=== PATIENT | female | born 1935 | race Hispanic/Latino ===

== ENCOUNTER 2018-04-10 00:09 | Observation (INO) | payer MEDICARE, BC ==
[2018-04-10 00:16] VITALS: BMI 24.1
[2018-04-10] MEDS ORDERED: TDAP Vaccine 0.5 mL Syr IM ONE (00:29)
[2018-04-10] MEDS ORDERED: Lidocaine 1% Inj (20ml) IJ STA (00:29)
--- NOTE | 2018-04-10 01:44 | ED PDOC ---
Arrival/HPI - General Historian: Patient - History of Present Illness Narrative History of Present Illness (Text): Nicole Min is an 82 year old female who presents to the Emergency department status post fall. Patient states she was sitting in her rocking chair, could not find her TV remote, and attempted to turn off her TV when she fell forward. Patient states she hit her face on the floor and sustained laceration to her right 2nd and 4th fingers. Patient denies any loss of consciousness, headache, or any other pain. Patient states she just fell, states she did not trip or slip and fall. Patient states she felt fine prior to the fall, states she was watching TV without any issues. Patient denies any dizziness, chest pain, shortness of breath, nausea, vomiting, palpitations, or any other complaints. Symptom Onset: Gradual Symptom Course: Unchanged Activities at Onset: Light Context: Home <Kathleen Michael PA-C - Last Filed: 04/10/18 02:29> <Tay Freeman - Last Filed: 04/10/18 05:23> - General Chief Complaint: Trauma Time Seen by Provider: 04/10/18 00:17 Past Medical History - Provider Review Nursing Documentation Reviewed: Yes - Infectious Disease Hx of Infectious Diseases: None - Tetanus Immunization Tetanus Immunization: Unknown - Cardiac Hx Hypertension: Yes - Musculoskeletal/Rheumatological Hx Falls: No - Gastrointestinal Hx Gastrointestinal Disorders: Yes (bilateral inguinal hernia sx,reflux,polyps) - Psychiatric Hx Depression: No Hx Emotional Abuse: No Hx Physical Abuse: No Hx Substance Use: No - Surgical History Hx Cholecystectomy: Yes - Suicidal Assessment Feels Threatened In Home Enviroment: No <Kathleen Michael PA-C - Last Filed: 04/10/18 02:29> Family/Social History - Physician Review Nursing Documentation Reviewed: Yes Family/Social History: Unknown Family HX Smoking Status: Never Smoked Hx Alcohol Use: No Hx Substance Use: No Hx Substance Use Treatment: No <Kathleen Michael PA-C - Last Filed: 04/10/18 02:29> Allergies/Home Meds <Kathleen Michael PA-C - Last Filed: 04/10/18 02:29> <Tay Freeman - Last Filed: 04/10/18 05:23> Allergies/Adverse Reactions: Allergies No Known Allergies Allergy (Verified 08/16/11 17:27) Home Medications: Home Meds Medication Instructions Recorded Confirmed Lansoprazole [Prevacid Solutab] 30 mg PO DAILY 08/16/11 02/19/13 Lisinopril 20 mg PO DAILY 08/16/11 02/19/13 Warfarin [Coumadin] 3 mg PO HS 08/20/11 02/19/13 Review of Systems - Physician Review All systems were reviewed & negative as marked: Yes - Review of Systems Constitutional: Normal. absent: Fevers Eyes: Normal ENT: Normal Respiratory: Normal. absent: SOB, Cough Cardiovascular: Normal. absent: Chest Pain Gastrointestinal: Normal. absent: Abdominal Pain, Diarrhea, Nausea, Vomiting Genitourinary Female: Normal. absent: Dysuria, Frequency, Hematuria, Urine Output Changes Musculoskeletal: Normal. absent: Back Pain, Neck Pain Skin: Laceration Neurological: Normal. absent: Headache, Dizziness Endocrine: Normal Hemo/Lymphatic: Normal Psychiatric: Normal <Kathleen Michael PA-C - Last Filed: 04/10/18 02:29> Physical Exam Vital Signs Reviewed: Yes Vital Signs Temp Pulse Resp BP Pulse Ox 04/10/18 01:04 63 18 152/87 H 100 04/10/18 00:17 98.8 F 79 18 157/107 H 99 Temperature: Afebrile Blood Pressure: Normal Pulse: Regular Respiratory Rate: Normal Appearance: Positive for: Well-Appearing, Non-Toxic, Comfortable Pain Distress: None Mental Status: Positive for: Alert and Oriented X 3 - Systems Exam Head: Present: Atraumatic, Normocephalic Pupils: Present: PERRL Extroacular Muscles: Present: EOMI Conjunctiva: Present: Normal Ears: Present: Normal, NORMAL TM, Normal Canal. No: Erythema, TM Bulging, Fluid, TM Perf Mouth: Present: Moist Mucous Membranes Neck: Present: Normal Range of Motion Respiratory/Chest: Present: Clear to Auscultation, Good Air Exchange. No: Respiratory Distress, Accessory Muscle Use Cardiovascular: Present: Regular Rate and Rhythm, Normal S1, S2. No: Murmurs Abdomen: No: Tenderness, Distention, Peritoneal Signs Back: Present: Normal Inspection Upper Extremity: Present: Normal ROM, NORMAL PULSES, Neurovascularly Intact, Capillary Refill < 2s, Other (U-shaped laceration, approximately 3cm, to volar aspects of the right 2nd and 4th digit). No: Cyanosis, Edema, Tenderness, Swelling, Erythema, Temperature Abnormalties, Deformity Lower Extremity: Present: Normal Inspection. No: Edema Neurological: Present: GCS=15, CN II-XII Intact, Speech Normal Skin: Present: Warm, Dry, Normal Color. No: Rashes Psychiatric: Present: Alert, Oriented x 3, Normal Insight, Normal Concentration <Kathleen Michael PA-C - Last Filed: 04/10/18 02:29> Vital Signs Temp Pulse Resp BP Pulse Ox 04/10/18 01:04 63 18 152/87 H 100 04/10/18 00:17 98.8 F 79 18 157/107 H 99 <Tay Freeman - Last Filed: 04/10/18 05:23> Medical Decision Making ED Course and Treatment: Impression: 82 year old female presents s/p fall at home. Plan: -- CT Head w/o contrast -- EKG -- Chest X-Ray -- XR Right Shoulder -- Labs, cardiac enzymes, BNP -- Urinalysis, urine cultures -- TDAP -- Lidocaine -- Reassess and disposition Progress Notes: 04/10/18 01:15 Spoke with patient's daughter via phone, states patient has developed some dementia. States she did not witness the fall, as she lives upstairs, however notes patient called her right away after the fall. 04/10/18 02:15 XR Right Shoulder reviewed, negative for fractures. CXR shows no acute processes. 04/10/18 02:30 PROCEDURE: LACERATION REPAIR Performed by the emergency provider Location: Right 2nd finger Length: 3 cm Description: clean wound edges, no foreign bodies Distal CMS: Normal. No deficits. Neurovascularly intact. Preparation: The wound was cleaned with NS and Betadyne. The area was prepped and draped in the usual sterile fashion. Exploration: The wound was explored and no foreign bodies were found. Procedure: The wound was closed with dermabond. There was good approximation. Post-Procedure: Good closure and hemostasis. The patient tolerated the procedure well and there were no complications. CSM remains intact. Post procedure dressing applied. PROCEDURE: DIGITAL BLOCK Performed by the emergency provider Indication : Pain control Location: Right 4th digit Preparation: The area was prepped and cleansed with NS and Betadyne. Procedure: The appropriate site for a digital nerve block was identified. Nerve block was obtained with local infiltration of 5 mL of Lidocaine 1%. Post-Procedure: The patient tolerated the procedure well, and there were no complications. Performed by the emergency provider Location: Right 4th finger Length: 3 cm Description: clean wound edges,no foreign bodies Distal CMS: Normal. No deficits. Neurovascularly intact. Anesthesia: Lidocaine 1% Preparation: The wound was cleaned with NS and Betadyne. The area was prepped and draped in the usual sterile fashion. Exploration: The wound was explored and no foreign bodies were found. Procedure: The wound was closed with 4-0 proline. There was good approximation. In total, 4 stitches were used. Post-Procedure: Good closure and hemostasis. The patient tolerated the procedure well and there were no complications. CSM remains intact. Post procedure dressing applied. - RAD Interpretation Radiology Orders: 04/10/18 00:29 HEAD W/O CONTRAST [CT] Stat 04/10/18 01:24 CHEST TWO VIEWS (PA/LAT) [RAD] Stat SHOULDER RIGHT [RAD] Stat - Medication Orders Current Medication Orders: Discontinued Medications Lidocaine HCl (Lidocaine 1% (20ml)) 10 ml IJ STAT STA Stop: 04/10/18 00:30 Tetanus/Reduced Diphtheria/Acell Pertussis (Boostrix Vaccine Inj) 0.5 ml IM .ONCE ONE Stop: 04/10/18 00:30 <Kathleen Michael PA-C - Last Filed: 04/10/18 02:29> ED Course and Treatment: 04/10/18 04:48 CT Head: There is normal configuration of sella turcica. There are no intra or extra- axial collections. There is no mass effect or midline shift. There is no evidence of hematoma formation. No hydrocephalus is present. The ventricles are symmetrical. No abnormal calcifications are present. There is diffuse age-appropriate cerebellar and cerebral atrophy with proportionally dilated ventricles and cortical sulci. There are bilateral periventricular and subcortical white matter hypolucencies compatible with mild chronic microvascular disease. Otherwise, no significant focal abnormalities are seen either in the posterior fossa or supratentorial compartment. IMPRESSION: 1. Age-appropriate cerebellar and cerebral atrophy. 2. Mild chronic microvascular disease. 3. No evidence of acute intracranial pathology. Thank you for your kind referral of this patient. Electronically signed on Apr 10, 2018 2:48:16 AM EST by: Hanny Tenorio M.D., Certified by ABR, MSK, Neuroradiology 04/10/18 05:04 Case was discussed with , accepts to his service. - RAD Interpretation Radiology Orders: 04/10/18 00:29 HEAD W/O CONTRAST [CT] Stat 04/10/18 01:24 CHEST TWO VIEWS (PA/LAT) [RAD] Stat SHOULDER RIGHT [RAD] Stat - Medication Orders Current Medication Orders: Discontinued Medications Lidocaine HCl (Lidocaine 1% (20ml)) 10 ml IJ STAT STA Stop: 04/10/18 00:30 Tetanus/Reduced Diphtheria/Acell Pertussis (Boostrix Vaccine Inj) 0.5 ml IM .ONCE ONE Stop: 04/10/18 00:30 <Tay Freeman - Last Filed: 04/10/18 05:23> - PA / BRAIN PICKER / Resident Statement KHOI has reviewed & agrees with the documentation as recorded. - Scribe Statement The provider has reviewed the documentation as recorded by the Scribe Hetal Danielle Provider Scribe Attestation: All medical record entries made by the Scribe were at my direction and personally dictated by me. I have reviewed the chart and agree that the record accurately reflects my personal performance of the history, physical exam, medical decision making, and the department course for this patient. I have also personally directed, reviewed, and agree with the discharge instructions and disposition. <Kathleen Michael PA-C - Last Filed: 04/10/18 02:29> - PA / BRAIN PICKER / Resident Statement KHOI has reviewed & agrees with the documentation as recorded. KHOI has examined the patient and agrees with the treatment plan. <Tay Freeman - Last Filed: 04/10/18 05:23> Disposition/Present on Arrival - Present on Arrival Any Indicators Present on Arrival: Yes History of DVT/PE: Yes History of Uncontrolled Diabetes: No Urinary Catheter: No History of Decub. Ulcer: No History Surgical Site Infection Following: None - Disposition Have Diagnosis and Disposition been Completed?: Yes <Kathleen Michael PA-C - Last Filed: 03/06/19 02:29> - Present on Arrival Any Indicators Present on Arrival: Yes History of DVT/PE: Yes History of Uncontrolled Diabetes: No Urinary Catheter: No History of Decub. Ulcer: No History Surgical Site Infection Following: None - Disposition Have Diagnosis and Disposition been Completed?: Yes Disposition Time: 04:59 Patient Plan: Observation <Tay Freeman - Last Filed: 04/10/18 05:23> - Disposition Diagnosis: Fall, Near syncope, Finger laceration Disposition: HOSPITALIZED Patient Problems: Current Active Problems Problem Status Onset Fall Acute Finger laceration Acute Near syncope Acute Condition: STABLE
[2018-04-10 03:04] LABS: BASO # 0.02 K/mm3 (0.0-2.0); BASO % 0.2 % (0.0-3.0); EOS # 0.1 (0.0-0.7); EOS % 0.6 % (1.5-5.0); HEMOGLOBIN 14.8 g/dL (12.0-16.0); LYMPH # 1.3 (1.2-3.4); LYMPH % 15.7 % (22.0-35.0); MEAN CELL VOLUME 89.2 fl (80.0-105.0); MEAN CORPUSCULAR HGB CONC 32.5 g/dl (31.0-37.0); MEAN PLATELET VOLUME 10.2 fl (7.0-11.0); MONO # 0.6 (0.1-0.6); MONO % 7.6 % (1.0-6.0); RBC 5.11 10^6/uL (3.5-6.1); RED CELL DISTRIBUTION WIDTH 13.3 % (11.5-14.5); WHITE BLOOD COUNT 8.1 10^3/uL (4.5-11.0)
[2018-04-10 03:16] LABS: ALB/GLOB RATIO 1.2 (1.1-1.8); ALBUMIN 3.7 g/dL (3.0-4.8); BLOOD UREA NITROGEN 17 mg/dL (7-21); CALCIUM 9.3 mg/dL (8.4-10.5); GFR NON-AFRICAN AMERICAN > 60
[2018-04-10 03:27] LABS: B-TYPE NATRIURETIC PEPTIDE 367 pg/mL (0-450); TROPONIN I 0.01 ng/mL
[2018-04-10 04:13] LABS: ALT/SGPT 18 U/L (7-56); AST/SGOT 32 U/L (14-36)
[2018-04-10 05:51] LABS: INR 1.02; PARTIAL THROMBOPLASTIN TIME 26.8 Seconds (26.9-38.3); PROTHROMBIN TIME 11.5 SECONDS (9.4-12.5)
[2018-04-10] MEDS ORDERED: Bacitracin 500 Units/gm Oint Foilpak UD ONE (06:10)
--- NOTE | 2018-04-10 08:19 | CT ---
Date of service: 04/10/2018 PROCEDURE: CT HEAD WITHOUT CONTRAST. HISTORY: fall COMPARISON: 02/19/2013 TECHNIQUE: Axial computed tomography images were obtained through the head/brain without intravenous contrast. Radiation dose: Total exam DLP = 802.65 mGy-cm. This CT exam was performed using one or more of the following dose reduction techniques: Automated exposure control, adjustment of the mA and/or kV according to patient size, and/or use of iterative reconstruction technique. FINDINGS: HEMORRHAGE: No intracranial hemorrhage. BRAIN: No mass effect or edema. Chronic microvascular changes are seen in the periventricular white matter. Moderate atrophy VENTRICLES: Unremarkable. No hydrocephalus. CALVARIUM: Unremarkable. PARANASAL SINUSES: Unremarkable as visualized. No significant inflammatory changes. MASTOID AIR CELLS: Unremarkable as visualized. No inflammatory changes. OTHER FINDINGS: The report concurs with the preliminary [facility] report IMPRESSION: No acute intracranial findings
--- NOTE | 2018-04-10 09:01 | RAD ---
Date of service: 04/10/2018 HISTORY: fall COMPARISON: No prior. TECHNIQUE: Chest PA and lateral FINDINGS: LUNGS: No active pulmonary disease. PLEURA: No significant pleural effusion identified. No pneumothorax apparent. CARDIOVASCULAR: Aortic calcification Normal cardiac size. No pulmonary vascular congestion. OSSEOUS STRUCTURES: No significant abnormalities. VISUALIZED UPPER ABDOMEN: Normal. OTHER FINDINGS: None. IMPRESSION: No active disease.
[2018-04-10 09:20] VITALS: O2SAT 98
[2018-04-10] MEDS: Enoxaparin 60 mg Syringe SC SCH ×2 (09:31→22:44)
--- NOTE | 2018-04-10 11:19 | RAD ---
Date of service: 04/10/2018 PROCEDURE: Radiographs of the Right Shoulder HISTORY: pain COMPARISON: No prior. FINDINGS: BONES: Normal. No fracture. JOINTS: Normal. Glenohumeral and acromioclavicular joints preserved. No osteoarthritis. SOFT TISSUES: Normal. OTHER FINDINGS: None. IMPRESSION: Normal radiographs of the right shoulder.
--- NOTE | 2018-04-10 11:58 | CP.PCM.APN ---
Subjective - Date & Time of Evaluation Date of Evaluation: 04/10/18 Time of Evaluation: 10:00 - Subjective Subjective: pt seenna dexamined at bedside, pt in NAd , denies cp or sob Review of Systems - Review of Systems All systems: reviewed and no additional remarkable complaints except Objective - Vital Signs/Intake and Output Vital Signs (last 24 hours): Temp Pulse Resp BP Pulse Ox 98.8 F 75 20 128/82 98 04/10/18 06:10 04/10/18 06:10 04/10/18 07:46 04/10/18 06:10 04/10/18 06:10 - Medications Medications: Current Medications Enoxaparin Sodium (Lovenox) 60 mg SC Q12 CORETTA; Protocol Last Admin: 04/10/18 09:31 Dose: 60 mg - Labs Labs: 04/10/18 02:49 04/10/18 02:49 PT 11.5 SECONDS (9.4-12.5) 04/10/18 05:20 INR 1.02 04/10/18 05:20 APTT 26.8 Seconds (26.9-38.3) L 04/10/18 05:20 - Constitutional Appears: No Acute Distress - Eye Exam Eye Exam: Normal appearance Pupil Exam: NORMAL ACCOMODATION - ENT Exam ENT Exam: Normal Exam - Neck Exam Neck Exam: Normal Inspection - Respiratory Exam Respiratory Exam: Clear to Ausculation Bilateral, NORMAL BREATHING PATTERN - Cardiovascular Exam Cardiovascular Exam: +S1, +S2 - GI/Abdominal Exam GI & Abdominal Exam: Soft - Extremities Exam Extremities Exam: Normal Inspection (4th finger with dsg ) - Neurological Exam Neurological Exam: Alert - Skin Skin Exam: Dry, Intact Assessment and Plan - Assessment and Plan (Free Text) Plan: ITS Impressions Head CT 04/10/18 00:29 IMPRESSION: No acute intracranial findings Chest X-Ray 04/10/18 01:24 IMPRESSION: No active disease. Shoulder X-Ray 04/10/18 01:24 IMPRESSION: Normal radiographs of the right shoulder. 82 yr old female with pmh sig for ? 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 will continue to monitor clinical status. BPCI/TIC - BPCIA/TIC Educated pt/family on BPCIA/CIR/Med to Bed Programs: N/A Flyers given, including CMS Beneficiary letter: N/A Pt/family verbalized understanding & agreed to program: N/A
--- NOTE | 2018-04-10 13:58 | CARD ---
APPROVED REPORT Date of service: 04/10/2018 EKG Measurement Heart [id number] CT [id number] <Conclusion> Sinus rhythm with 1st degree AV block with premature atrial complexes Inferior infarct, age undetermined Abnormal ECG
--- NOTE | 2018-04-10 15:18 | CP.PCM.HP ---
<KamillaRaudel - Last Filed: 04/10/18 15:13> History of Present Illness - History of Present Illness History of Present Illness: H&P for Dr Sanchez: 79-year-old female with past medical history of DVT with IVC filter was on Coumadin however noncompliant in the last month, duodenal carcinoma, diverticulosis, obesity, hypertension, GERD, esophagitis presents to the emergency room following a fall. Patient states that she went to turn off her television in the house when she fell. Patient denies losing consciousness or blackening out. Patient denies any urinary or fecal incontinence. No tongue biting. She denies tripping over anything. She does state that her legs were weak and that could be the cause of her falling. Patient did hit the right side of her face near her cheek and jaws. She also developed a laceration during the fall to her right ring finger. Patient denies any other complaints at this time 12 point ROS performed and negative other than stated above PMH: As above PSH: IVC filter, hematoma by the abdomen? Medications: Noncompliant, was on Coumadin Allergies: No known allergies SH: Denies any smoking, drinking, or drug use FH: Denies Present on Admission - Present on Admission Any Indicators Present on Admission: No Review of Systems - Review of Systems All systems: reviewed and no additional remarkable complaints except Past Patient History - Infectious Disease Hx of Infectious Diseases: None - Tetanus Immunizations Tetanus Immunization: Unknown - Past Social History Smoking Status: Former Smoker - CARDIAC Hx Hypertension: Yes - MUSCULOSKELETAL/RHEUMATOLOGICAL Hx Falls: Yes - GASTROINTESTINAL Hx Gastrointestinal Disorders: Yes (bilateral inguinal hernia sx,reflux,polyps) - PSYCHIATRIC Hx Depression: No Hx Emotional Abuse: No Hx Physical Abuse: No Hx Substance Use: No - SURGICAL HISTORY Hx Cholecystectomy: Yes Meds Allergies/Adverse Reactions: Allergies Allergy/AdvReac Type Severity Reaction Status Date / Time No Known Allergies Allergy Verified 08/16/11 17:27 Physical Exam - Constitutional Appears: No Acute Distress - Head Exam Head Exam: NORMOCEPHALIC Additional comments: Erythema and mild swelling to the right lower face near her cheek and her jaws - Eye Exam Eye Exam: EOMI - ENT Exam ENT Exam: Mucous Membranes Moist - Respiratory Exam Respiratory Exam: Clear to Auscultation Bilateral. absent: Rales, Wheezes - Cardiovascular Exam Cardiovascular Exam: REGULAR RHYTHM, +S1, +S2 - Extremities Exam Additional comments: Laceration that was repaired in the ED to her right middle finger. The area is CDI. Results - Vital Signs Recent Vital Signs: Last Vital Signs Temp 98.9 F 04/10/18 12:00 Pulse 69 04/10/18 12:00 Resp 18 04/10/18 12:00 BP 155/79 H 04/10/18 12:00 Pulse Ox 98 04/10/18 06:10 - Labs Result Diagrams: 04/10/18 02:49 04/10/18 02:49 Labs: Laboratory Results - last 24 hr 04/10/18 04/10/18 04/10/18 02:49 02:49 05:20 WBC 8.1 RBC 5.11 Hgb 14.8 Hct 45.6 MCV 89.2 MCH 29.0 MCHC 32.5 RDW 13.3 Plt Count 199 MPV 10.2 Neut % (Auto) 75.9 H Lymph % (Auto) 15.7 L Victoria % (Auto) 7.6 H Eos % (Auto) 0.6 L Baso % (Auto) 0.2 Lymph # (Auto) 1.3 Victoria # (Auto) 0.6 Eos # (Auto) 0.1 Baso # (Auto) 0.02 Absolute Neuts (auto) 6.15 PT 11.5 INR 1.02 APTT 26.8 L Sodium 138 Potassium 3.8 Chloride 105 Carbon Dioxide 29 Anion Gap 8 L BUN 17 Creatinine 0.8 Est GFR ( Amer) > 60 Est GFR (Non-Af Amer) > 60 Random Glucose 107 Calcium 9.3 Magnesium 2.2 Total Bilirubin 0.8 AST 32 ALT 18 Alkaline Phosphatase 110 Lactate Dehydrogenase 668 Total Creatine Kinase 150 Troponin I 0.01 NT-Pro-B Natriuret Pep 367 Total Protein 6.9 Albumin 3.7 Globulin 3.2 Albumin/Globulin Ratio 1.2 Assessment & Plan - Assessment and Plan (Free Text) Assessment: 1. Mechanical fall 2. Laceration of the right ring finger 3. Right jaw ecchymosis 4. History of multiple DVTs 5. Hypertension 6. Obesity 7. GERD 8. Duodenal carcinoma 9. Diverticulosis 10. Esophagitis At this time patient states that she is feeling better denies any dizziness. Her lab work were unremarkable. Patient is noncompliant to any of her medications. She states that one month ago she stopped her Coumadin and her blood pressure medication and she felt okay therefore permanently stopped taking all of them. Explained to the patient the importance of Coumadin for her history of unprovoked clots and her lisinopril for her blood pressure. Patient does not appear to want to resume any medications once she gets home.. I will reeducate her again tomorrow. We will follow-up.Chest x-ray and shoulder x-ray were performed and were unremarkable. CT of the head was negative for any acute intracranial findings. Meanwhile follow-up neurology recommendations for her fall. Patient's laceration of the right finger were repaired in the emergency room, will follow up. Continue to monitor patient's ecchymosis of the right jaw. Continue with Lovenox therapeutic dose of 60 every 12 for her DVTs until the patient decides if she would like to resume Coumadin. We will follow-up with the patient's blood pressure resume the patient's lisinopril for her hypertension. Patient was started on Protonix for her GERD and esophagitis. Physical therapy evaluated the patient and recommended TCU. Patient was accept ed for TCU tomorrow. Continue with heart healthy diet. Case and plan was reviewed and discussed with Dr. Sanchez. <Neal Sanchez S - Last Filed: 04/10/18 19:29> Results - Vital Signs Recent Vital Signs: Last Vital Signs Temp 100 F H 04/10/18 17:52 Pulse 76 04/10/18 18:34 Resp 18 04/10/18 17:52 BP 161/85 H 04/10/18 18:34 Pulse Ox 98 04/10/18 06:10 - Labs Result Diagrams: 04/10/18 02:49 04/10/18 02:49 Labs: Laboratory Results - last 24 hr 04/10/18 04/10/18 04/10/18 02:49 02:49 05:20 WBC 8.1 RBC 5.11 Hgb 14.8 Hct 45.6 MCV 89.2 MCH 29.0 MCHC 32.5 RDW 13.3 Plt Count 199 MPV 10.2 Neut % (Auto) 75.9 H Lymph % (Auto) 15.7 L Victoria % (Auto) 7.6 H Eos % (Auto) 0.6 L Baso % (Auto) 0.2 Lymph # (Auto) 1.3 Victoria # (Auto) 0.6 Eos # (Auto) 0.1 Baso # (Auto) 0.02 Absolute Neuts (auto) 6.15 PT 11.5 INR 1.02 APTT 26.8 L Sodium 138 Potassium 3.8 Chloride 105 Carbon Dioxide 29 Anion Gap 8 L BUN 17 Creatinine 0.8 Est GFR ( Amer) > 60 Est GFR (Non-Af Amer) > 60 Random Glucose 107 Calcium 9.3 Magnesium 2.2 Total Bilirubin 0.8 AST 32 ALT 18 Alkaline Phosphatase 110 Lactate Dehydrogenase 668 Total Creatine Kinase 150 Troponin I 0.01 NT-Pro-B Natriuret Pep 367 Total Protein 6.9 Albumin 3.7 Globulin 3.2 Albumin/Globulin Ratio 1.2 Assessment & Plan - Assessment and Plan (Free Text) Assessment: Pt seen and examined by me. I have reviewed the note of the director of medical education and I agree with it. I have discussed the assessment and plan with the resident. I have reviewed the medications and the last labs.
--- NOTE | 2018-04-10 20:20 | CON ---
DATE: 04/10/2018 HISTORY OF PRESENT ILLNESS: This is an 82-year-old female who came to emergency room because she fell. She was sitting in her rocking chair, could not find the TV remote, attempted to turn off TV and she fell forward on her face and sustained laceration on her second and forth finger of the right hand. Denies any loss of consciousness, headache and she just fell and had small hematoma on the right side of the face. Called to evaluate the patient. PAST MEDICAL HISTORY: As above. PHYSICAL EXAMINATION: VITAL SIGNS: Blood pressure 157/107. HEENT: Normocephalic and atraumatic. NECK: Supple. NEUROLOGIC: Awake and oriented to self, place. DIAGNOSTIC DATA: CAT scan was done without contrast, was negative. No bleed. IMPRESSION AND PLAN: Syncope, less likely seizure and continue present management. We will follow up. Jesus Day MD
[2018-04-11 05:54] LABS: PH,URINE 5.5 (4.7-8.0); URINE APPEARANCE SL CLOUDY (CLEAR); URINE BILIRUBIN NEGATIVE (NEGATIVE); URINE BLOOD TRACE-INTACT (NEGATIVE); URINE COLOR YELLOW (YELLOW); URINE GLUCOSE (UA) NEGATIVE (NEGATIVE); URINE LEUKOCYTE ESTERASE SMALL Leu/uL (NEGATIVE); URINE PROTEIN NEGATIVE mg/dL (<30 mg/dL); URINE UROBILINOGEN 0.2 E.U./dL (<1 E.U./dL)
[2018-04-11] MEDS ORDERED: Pantoprazole 40 mg EC Tab PO SCH (06:00)
[2018-04-11 06:03] LABS: URINE BACTERIA MANY /hpf; URINE RBC 0 - 2 /hpf (0-2)
--- NOTE | 2018-04-11 08:28 | PN ---
DATE: 04/10/2018 HOSPITAL COURSE: The patient was seen and examined. I do agree with the note of medical doctor nuclear medicine, I was involved in the plan of care. The patient had mechanical fall. She had laceration of her right finger that was sutured. The patient has right jaw ecchymosis with swelling after the fall. She denied any loss of consciousness. No seizure like activity. No incontinent. She did not have the to falling. She is currently comfortable. She has a history of DVT and has stopped taking her anticoagulation. The patient has hypertension, the hypertension is controlled. She had multiple x-rays that were done that did not show any fractures. The patient has history of reflex. The patient has history of adenocarcinoma. She has diverticulosis history as well. She is going to continue on lisinopril for hypertension. She is on Lovenox for DVT prophylaxis. She is on heart healthy diet. Neal Sanchez MD DUNIA
[2018-04-11] MEDS: Enoxaparin 60 mg Syringe SC SCH (10:44)
[2018-04-11 12:59] VITALS: RESP 18
--- NOTE | 2018-04-11 15:08 | CP.PCM.PN ---
Subjective - Date & Time of Evaluation Date of Evaluation: 04/11/18 Time of Evaluation: 08:00 - Subjective Subjective: Medicine Progress note: Pt seen and examined at bedside. no acute events overnight. Patient states that she is doing well. Denies any compliants at this time. 12 Point ROS performed and neg other than stated above. Objective - Vital Signs/Intake and Output Vital Signs (last 24 hours): Temp Pulse Resp BP Pulse Ox 99.3 F 77 18 122/84 98 04/11/18 12:00 04/11/18 12:00 04/11/18 12:00 04/11/18 12:00 04/11/18 06:00 Intake and Output: 04/11/18 04/11/18 06:59 18:59 Intake Total 1380 Output Total 4 Balance 1376 - Medications Medications: Current Medications Enoxaparin Sodium (Lovenox) 60 mg SC Q12 [facility]; Protocol Last Admin: 04/11/18 10:44 Dose: 60 mg Lisinopril (Zestril) 20 mg PO DAILY [facility] Last Admin: 04/11/18 10:45 Dose: 20 mg Pantoprazole Sodium (Protonix Ec Tab) 40 mg PO 0600 [facility] Last Admin: 04/11/18 06:48 Dose: 40 mg - Labs Labs: 04/10/18 02:49 04/10/18 02:49 PT 11.5 SECONDS (9.4-12.5) 04/10/18 05:20 INR 1.02 04/10/18 05:20 APTT 26.8 Seconds (26.9-38.3) L 04/10/18 05:20
--- NOTE | 2018-04-11 15:59 | CP.PCM.DIS ---
<Raudel Kohli - Last Filed: 04/11/18 15:59> Provider - Provider Date of Admission: 04/10/18 19:29 Attending physician: Neal Sanchez MD Primary care physician: Timmy Dsouza MD Consults: 04/10/18 06:00 Consult [Physician Consult] Routine Comment: Consulting Provider: Javier Day Consulting Physician: Javier Day Reason for Consult: syncope 04/10/18 09:00 Transition In Care/Readmission Reduction Routine Comment: Physician Instructions: Reason For Exam: protocol 04/10/18 09:11 Nursing Referral for Wound Care Routine Comment: Physician Instructions: Reason For Exam: protocol 04/10/18 16:44 TCU [Evaluation for TRCU] Routine Comment: Physician Instructions: Reason For Exam: weakness, fall 04/10/18 19:49 Social Work Referral Routine Comment: protocol Physician Instructions: Reason For Exam: Protocol Time Spent in preparation of Discharge (in minutes): 45 Hospital Course - Lab Results Lab Results: Most Recent Lab Values WBC 8.1 10^3/uL (4.5-11.0) 04/10/18 02:49 RBC 5.11 10^6/uL (3.5-6.1) 04/10/18 02:49 Hgb 14.8 g/dL (12.0-16.0) 04/10/18 02:49 Hct 45.6 % (36.0-48.0) 04/10/18 02:49 MCV 89.2 fl (80.0-105.0) 04/10/18 02:49 MCH 29.0 pg (25.0-35.0) 04/10/18 02:49 MCHC 32.5 g/dl (31.0-37.0) 04/10/18 02:49 RDW 13.3 % (11.5-14.5) 04/10/18 02:49 Plt Count 199 10^3/uL (120.0-450.0) 04/10/18 02:49 MPV 10.2 fl (7.0-11.0) 04/10/18 02:49 Neut % (Auto) 75.9 % (50.0-68.0) H 04/10/18 02:49 Lymph % (Auto) 15.7 % (22.0-35.0) L 04/10/18 02:49 Haakon % (Auto) 7.6 % (1.0-6.0) H 04/10/18 02:49 Eos % (Auto) 0.6 % (1.5-5.0) L 04/10/18 02:49 Baso % (Auto) 0.2 % (0.0-3.0) 04/10/18 02:49 Lymph # (Auto) 1.3 (1.2-3.4) 04/10/18 02:49 Haakon # (Auto) 0.6 (0.1-0.6) 04/10/18 02:49 Eos # (Auto) 0.1 (0.0-0.7) 04/10/18 02:49 Baso # (Auto) 0.02 K/mm3 (0.0-2.0) 04/10/18 02:49 Absolute Neuts (auto) 6.15 (1.4-6.5) 04/10/18 02:49 PT 11.5 SECONDS (9.4-12.5) 04/10/18 05:20 INR 1.02 04/10/18 05:20 APTT 26.8 Seconds (26.9-38.3) L 04/10/18 05:20 Sodium 138 mmol/L (132-148) 04/10/18 02:49 Potassium 3.8 mmol/L (3.6-5.0) 04/10/18 02:49 Chloride 105 mmol/L (98-107) 04/10/18 02:49 Carbon Dioxide 29 mmol/L (21-33) 04/10/18 02:49 Anion Gap 8 (10-20) L 04/10/18 02:49 BUN 17 mg/dL (7-21) 04/10/18 02:49 Creatinine 0.8 mg/dl (0.7-1.2) 04/10/18 02:49 Est GFR ( Amer) > 60 04/10/18 02:49 Est GFR (Non-Af Amer) > 60 04/10/18 02:49 Random Glucose 107 mg/dL (70-110) 04/10/18 02:49 Calcium 9.3 mg/dL (8.4-10.5) 04/10/18 02:49 Magnesium 2.2 mg/dL (1.7-2.2) 04/10/18 02:49 Total Bilirubin 0.8 mg/dL (0.2-1.3) 04/10/18 02:49 AST 32 U/L (14-36) 04/10/18 02:49 ALT 18 U/L (7-56) 04/10/18 02:49 Alkaline Phosphatase 110 U/L (38-126) 04/10/18 02:49 Lactate Dehydrogenase 668 U/L (333-699) 04/10/18 02:49 Total Creatine Kinase 150 U/L (35-230) 04/10/18 02:49 Troponin I 0.01 ng/mL 04/10/18 02:49 NT-Pro-B Natriuret Pep 367 pg/mL (0-450) 04/10/18 02:49 Total Protein 6.9 g/dL (5.8-8.3) 04/10/18 02:49 Albumin 3.7 g/dL (3.0-4.8) 04/10/18 02:49 Globulin 3.2 gm/dL 04/10/18 02:49 Albumin/Globulin Ratio 1.2 (1.1-1.8) 04/10/18 02:49 Urine Color Yellow (YELLOW) 04/11/18 05:10 Urine Appearance Sl cloudy (CLEAR) 04/11/18 05:10 Urine pH 5.5 (4.7-8.0) 04/11/18 05:[address] 1.020 (1.005-1.035) 04/11/18 05:10 Urine Protein Negative mg/dL (<30 mg/dL) 04/11/18 05:10 Urine Glucose (UA) Negative mg/dL (NEGATIVE) 04/11/18 05:10 Urine Ketones Negative mg/dL (NEGATIVE) 04/11/18 05:10 Urine Blood Trace-intact (NEGATIVE) H 04/11/18 05:10 Urine Nitrate Positive (NEGATIVE) H 04/11/18 05:10 Urine Bilirubin Negative (NEGATIVE) 04/11/18 05:10 Urine Urobilinogen 0.2 E.U./dL (<1 E.U./dL) 04/11/18 05:10 Ur Leukocyte Esterase Small Anisa/uL (NEGATIVE) H 04/11/18 05:10 Urine RBC 0 - 2 /hpf (0-2) 04/11/18 05:10 Urine WBC 2 - 5 /hpf (0-6) 04/11/18 05:10 Ur Epithelial Cells 1 - 3 /hpf (0-5) 04/11/18 05:10 Urine Bacteria Many /hpf (NONE) 04/11/18 05:10 - Hospital Course Hospital Course: 79-year-old female with past medical history of DVT with IVC filter was on Coumadin however noncompliant in the last month, duodenal carcinoma, diverticulosis, obesity, hypertension, GERD, esophagitis presents to the emergency room following a fall. In the emergency room basic lab work were performed. EKG showed heart rate of 71, sinus rhythm with first-degree AV block with premature atrial complexes, inferior infarct age undetermined. Chest x-ray showed no active disease. CT of the head was performed and showed no acute intracranial findings. Shoulder x-ray was performed and was negative. Patient was admitted to telemetry for close monitoring. Neurology was consulted for the recommendations. Patient was started on Lovenox therapeutic dose of 60 mg SC for her history of clots. However patient states that she has been noncompliant for the past 1 month with her Coumadin and she feels that she does not need it. I explained to her multiple times the importance of resuming her Coumadin and her blood pressure medications. However it seems that she is reluctant to take any of her medications at home. Physical therapy evaluated the patient and recommended TCU. Today the patient is able to walk around the nursing station independently and requests to go home. I tried reaching out the daughter Shirley multiple times at [phone] however I was unable to reach her, and the patient does not recall her number. She says that she has her medications at home if she decides to take them. She is instructed to follow-up with her PMD within 1 week in order to have her stitches on her finger evaluated and possibly removed. All questions answered. No other complaints Discharge Exam - Head Exam Head Exam: NORMOCEPHALIC - Eye Exam Eye Exam: EOMI, PERRL Pupil Exam: NORMAL ACCOMODATION - Respiratory Exam Respiratory Exam: Clear to PA & Lateral. absent: Rales, Rhonchi, Wheezes - Cardiovascular Exam Cardiovascular Exam: REGULAR RHYTHM, +S1, +S2 - GI/Abdominal Exam GI & Abdominal Exam: Normal Bowel Sounds, Soft, Unremarkable. absent: Tenderness - Neurological Exam Neurological exam: Alert, Oriented x3 - Psychiatric Exam Psychiatric exam: Normal Mood - Skin Skin Exam: Dry, Warm Discharge Plan - Follow Up Plan Condition: IMPROVED Patient education suggested?: Yes Instructions: Heart Healthy Diet, Preventing Falls in the Older Adult, Common Finger Injuries Additional Instructions: If the symptoms recur come back to the emergency room Follow-up with your PMD within 1 week in order to get your stitches evaluated and removed Take your medications as prescribed Referrals: Timmy Dsouza MD [Primary Care Provider] - <Neal Sanchez - Last Filed: 04/11/18 20:02> Provider - Provider Date of Admission: 04/10/18 05:00 Attending physician: Neal Sanchez MD Primary care physician: Timmy Dsouza MD Consults: 04/10/18 06:00 Consult [Physician Consult] Routine Comment: Consulting Provider: Javier Day Consulting Physician: Javier Day Reason for Consult: syncope 04/10/18 09:00 Transition In Care/Readmission Reduction Routine Comment: Physician Instructions: Reason For Exam: protocol 04/10/18 09:11 Nursing Referral for Wound Care Routine Comment: Physician Instructions: Reason For Exam: protocol 04/10/18 16:44 TCU [Evaluation for TRCU] Routine Comment: Physician Instructions: Reason For Exam: weakness, fall 04/10/18 19:49 Social Work Referral Routine Comment: protocol Physician Instructions: Reason For Exam: Protocol Hospital Course - Lab Results Lab Results: Most Recent Lab Values WBC 8.1 10^3/uL (4.5-11.0) 04/10/18 02:49 RBC 5.11 10^6/uL (3.5-6.1) 04/10/18 02:49 Hgb 14.8 g/dL (12.0-16.0) 04/10/18 02:49 Hct 45.6 % (36.0-48.0) 04/10/18 02:49 MCV 89.2 fl (80.0-105.0) 04/10/18 02:49 MCH 29.0 pg (25.0-35.0) 04/10/18 02:49 MCHC 32.5 g/dl (31.0-37.0) 04/10/18 02:49 RDW 13.3 % (11.5-14.5) 04/10/18 02:49 Plt Count 199 10^3/uL (120.0-450.0) 04/10/18 02:49 MPV 10.2 fl (7.0-11.0) 04/10/18 02:49 Neut % (Auto) 75.9 % (50.0-68.0) H 04/10/18 02:49 Lymph % (Auto) 15.7 % (22.0-35.0) L 04/10/18 02:49 Haakon % (Auto) 7.6 % (1.0-6.0) H 04/10/18 02:49 Eos % (Auto) 0.6 % (1.5-5.0) L 04/10/18 02:49 Baso % (Auto) 0.2 % (0.0-3.0) 04/10/18 02:49 Lymph # (Auto) 1.3 (1.2-3.4) 04/10/18 02:49 Haakon # (Auto) 0.6 (0.1-0.6) 04/10/18 02:49 Eos # (Auto) 0.1 (0.0-0.7) 04/10/18 02:49 Baso # (Auto) 0.02 K/mm3 (0.0-2.0) 04/10/18 02:49 Absolute Neuts (auto) 6.15 (1.4-6.5) 04/10/18 02:49 PT 11.5 SECONDS (9.4-12.5) 04/10/18 05:20 INR 1.02 04/10/18 05:20 APTT 26.8 Seconds (26.9-38.3) L 04/10/18 05:20 Sodium 138 mmol/L (132-148) 04/10/18 02:49 Potassium 3.8 mmol/L (3.6-5.0) 04/10/18 02:49 Chloride 105 mmol/L (98-107) 04/10/18 02:49 Carbon Dioxide 29 mmol/L (21-33) 04/10/18 02:49 Anion Gap 8 (10-20) L 04/10/18 02:49 BUN 17 mg/dL (7-21) 04/10/18 02:49 Creatinine 0.8 mg/dl (0.7-1.2) 04/10/18 02:49 Est GFR ( Amer) > 60 04/10/18 02:49 Est GFR (Non-Af Amer) > 60 04/10/18 02:49 Random Glucose 107 mg/dL (70-110) 04/10/18 02:49 Calcium 9.3 mg/dL (8.4-10.5) 04/10/18 02:49 Magnesium 2.2 mg/dL (1.7-2.2) 04/10/18 02:49 Total Bilirubin 0.8 mg/dL (0.2-1.3) 04/10/18 02:49 AST 32 U/L (14-36) 04/10/18 02:49 ALT 18 U/L (7-56) 04/10/18 02:49 Alkaline Phosphatase 110 U/L (38-126) 04/10/18 02:49 Lactate Dehydrogenase 668 U/L (333-699) 04/10/18 02:49 Total Creatine Kinase 150 U/L (35-230) 04/10/18 02:49 Troponin I 0.01 ng/mL 04/10/18 02:49 NT-Pro-B Natriuret Pep 367 pg/mL (0-450) 04/10/18 02:49 Total Protein 6.9 g/dL (5.8-8.3) 04/10/18 02:49 Albumin 3.7 g/dL (3.0-4.8) 04/10/18 02:49 Globulin 3.2 gm/dL 04/10/18 02:49 Albumin/Globulin Ratio 1.2 (1.1-1.8) 04/10/18 02:49 Urine Color Yellow (YELLOW) 04/11/18 05:10 Urine Appearance Sl cloudy (CLEAR) 04/11/18 05:10 Urine pH 5.5 (4.7-8.0) 04/11/18 05:[address] 1.020 (1.005-1.035) 04/11/18 05:10 Urine Protein Negative mg/dL (<30 mg/dL) 04/11/18 05:10 Urine Glucose (UA) Negative mg/dL (NEGATIVE) 04/11/18 05:10 Urine Ketones Negative mg/dL (NEGATIVE) 04/11/18 05:10 Urine Blood Trace-intact (NEGATIVE) H 04/11/18 05:10 Urine Nitrate Positive (NEGATIVE) H 04/11/18 05:10 Urine Bilirubin Negative (NEGATIVE) 04/11/18 05:10 Urine Urobilinogen 0.2 E.U./dL (<1 E.U./dL) 04/11/18 05:10 Ur Leukocyte Esterase Small Anisa/uL (NEGATIVE) H 04/11/18 05:10 Urine RBC 0 - 2 /hpf (0-2) 04/11/18 05:10 Urine WBC 2 - 5 /hpf (0-6) 04/11/18 05:10 Ur Epithelial Cells 1 - 3 /hpf (0-5) 04/11/18 05:10 Urine Bacteria Many /hpf (NONE) 04/11/18 05:10 - Hospital Course Hospital Course: Pt seen and examined by me. I have reviewed the note of the medical geneticist and I agree with it. I have discussed the assessment and plan with the resident. I have reviewed the medications and the last labs.
[2018-04-11 18:19] VITALS: BP 124/85; PULSE 85; TEMP 99.4
--- NOTE | 2018-04-11 22:44 | DS ---
HOSPITAL COURSE: The patient was seen and examined. I do agree with note of the medical dosimetrist. I have been involved in the plan of care. The patient initially came to the hospital because of a fall. She was seen by physical therapy and she had improvement in her symptoms with some gait ambulation. She was able to walk better. She was advised that she go home with services. The patient has a history of DVT and was educated about the importance of taking the Coumadin. She was restarted on her Coumadin. The patient was also started on Lovenox. The patient's daughter was updated on the plan of care. She is going to be discharged home and followup as an outpatient. Neal Sanchez MD
== END 2018-04-11 21:30 | disposition home or self-care (01) ==
LOC: ED 00:09 → ERH 05:00 → 2RNO 06:25 → OBSVTOIN 19:29 → INTOOBSV 19:29
PROVIDERS: ADMIT Internal Medicine Nephrology; ATTEND Internal Medicine Nephrology
DX: S61.214A Laceration without foreign body of right ring finger without damage to nail, initial encounter (principal); R55 Syncope and collapse; C17.0 Malignant neoplasm of duodenum; I10 Essential (primary) hypertension; K21.0 Gastro-esophageal reflux disease with esophagitis; K57.90 Diverticulosis of intestine, part unspecified, without perforation or abscess without bleeding; E66.9 Obesity, unspecified; I44.0 Atrioventricular block, first degree; Z86.718 Personal history of other venous thrombosis and embolism; Z91.19 Patient's noncompliance with other medical treatment and regimen; W18.30XA Fall on same level, unspecified, initial encounter; Z23 Encounter for immunization; Z87.891 Personal history of nicotine dependence
CPT/HCPCS: 12001; 36415; 70450; 71046; 73030; 80053; 81001; 82550; 83615; 83735; 83880; 84484; 85025; 85610; 85730; 87086; 90471; 90715; 93005; 97116; 97162; 97530; 99285; G0378; G8978; G8979; J1650